=== PATIENT | female | born 1990 | race Caucasian/White ===

== ENCOUNTER 2016-03-16 21:57 | Emergency (ER) | payer BC, OTHER ==
[~2016-03-16] VITALS: Ht 172.7 cm; Wt 117.9 kg
[~2016-03-16 21:57] MED LIST: PRENTAB26 PO
[2016-03-16 22:01] VITALS: Ht 172.7 cm; Wt 117.9 kg
[2016-03-16] MEDS ORDERED: METOCLOPRAMIDE HCL INJ 5 MG/ML 2 ML VIAL IV STA (22:27)
[2016-03-16] MEDS ORDERED: SODIUM CHLORIDE 0.9% 1000ML 2,000 ML IV STA (22:27)
[2016-03-16] MEDS ORDERED: FAMOTIDINE IV INJ 20 MG in DEXTROSE 5% 100ML 100 ML IV STA (22:27)
[2016-03-16] MEDS ORDERED: DiphenhydrAMINE HCL 50 MG/ML VIAL IV STA (22:27)
[2016-03-16 23:08] LABS: BASO % 0.1 %; BASO ABS # 0.01 K/uL (0-0.2); COMPLETE YES; EOS % 0.8 %; HEMATOCRIT 45.2 % (37-47); IG% 0.1 %; LYMPH ABS # 1.73 K/uL (1.2-3.4); MEAN CELL VOLUME 89.9 fL (80-100); MEAN CORPUSCULAR HEMOGLOBIN 31.6 pg (25-34); MEAN CORPUSCULAR HGB CONC 35.2 g/dl (32-36); MEAN PLATELET VOLUME 10.9 fL (7.4-10.4); MONO % 5.8 %; NEUT % 74.2 %; PLATELET COUNT 208 K/uL (130-400); RED BLOOD COUNT 5.03 M/uL (4.2-5.4); WHITE BLOOD COUNT 9.09 K/uL (4.8-10.8)
[2016-03-16 23:29] LABS: PREG INTERNAL NEGATIVE QC NEG CLEAR BACKGROUND; PREG INTERNAL POSITIVE QC POS CONTROL LINE
[2016-03-16 23:54] VITALS: TEMP 37
[2016-03-17] MEDS ORDERED: ONDANSETRON HOME PACK 4MG OD TAB PO ONE
[2016-03-17 00:24] LABS: BUN/CREATININE RATIO 15.4 (10-20); CALCIUM 8.2 mg/dl (8.5-10.1); CREATININE 0.78 mg/dl (0.60-1.20); MAGNESIUM 1.9 mg/dl (1.8-2.4); POTASSIUM 3.6 mmol/L (3.5-5.1)
--- NOTE | 2016-03-17 00:33 | EMERGENCY ROOM VISIT NOTE ---
History First contact with patient: 22:23 Chief Complaint: NAUSEA Stated Complaint: NAUSEA, STOMACH PAIN, DIZZY Nursing Triage Summary: N since Sunday. History of Present Illness The patient is a 25 year old female who presents to the Emergency Room with complaints of nausea, vomiting, diarrhea, lightheadedness and stomach cramping for the past few days. No recent antibiotics. No well water. Other people have been sick. Patient denies chest pain, dyspnea, fever, chills, cough, congestion, urinary symptoms. She is present pain as cramping, ranging in severity 4 out of 10 throughout the abdomen with no localized pain. Nothing makes it better or worse. No blood or black in the vomit or stool. Review of Systems See HPI for pertinent positives & negatives. A total of 10 systems reviewed and were otherwise negative. Past Medical/Surgical History Medical Problems: (1) HTN (hypertension) Family History Hypertension Social History Smoking Status: Current Every Day Smoker Alcohol Use: none Drug Use: none Marital Status: single Housing Status: lives with family Occupation Status: employed Current/Historical Medications No Active Prescriptions or Reported Meds Allergies Coded Allergies: No Known Allergies (Unverified , 03/16/16) Physical Exam Vital Signs Date Time Temp Pulse Resp B/P Pulse Ox O2 Delivery O2 Flow Rate FiO2 03/16/16 22:01 37.0 82 20 141/95 96 Room Air Physical Exam VITALS: Vitals are noted on the nurse's note and reviewed by myself. Vital signs stable. GENERAL: Pleasant female, in no acute distress, nondiaphoretic, well-developed well-nourished. SKIN: The skin was without rashes, erythema, edema, or bruising. There is no tenting of the skin. Capillary reflex less than 2 seconds. HEAD: Normocephalic atraumatic. EARS: External auditory canals clear, tympanic membranes pearly ho without erythema or effusion bilaterally. EYES: Pupils equal round and reactive to light and accommodation. Conjunctivae without injection, sclerae without icterus. Extraocular movements intact. NOSE: Patent, turbinates without inflammation or discharge. No sinus tenderness. MOUTH: Mucous membranes mildly dry. Pharynx without erythema or exudate. Uvula midline. Airway patent. Tongue does not deviate. NECK: Supple without nuchal rigidity. No lymphadenopathy. No thyromegaly. Cervical spine is nontender. No JVD. HEART: Regular rate and rhythm without murmurs gallops or rubs. LUNGS: Clear to auscultation bilaterally without wheezes, rales or rhonchi. No dullness to percussion. No retractions or accessory muscle use. ABDOMEN: Positive bowel sounds x 4. Normal tympanic percussion. Soft, protuberant, obese, no CVA tenderness nontender, without masses or organomegaly. Reddy sign negative. No guarding or rebound tenderness. MUSCULOSKELETAL: No muscle atrophy, erythema, or edema noted. NEURO: Patient was alert and oriented to person place and time. Normal sensation to light and sharp touch. No focal neurological deficits. Medical Decision & Procedures Laboratory Results 03/16/16 22:50 Red Blood Count 5.03, Mean Corpuscular Volume 89.9, Mean Corpuscular Hemoglobin 31.6, Mean Corpuscular Hemoglobin Concent 35.2, Mean Platelet Volume 10.9, Neutrophils (%) (Auto) 74.2, Lymphocytes (%) (Auto) 19.0, Monocytes (%) (Auto) 5.8, Eosinophils (%) (Auto) 0.8, Basophils (%) (Auto) 0.1, Neutrophils # (Auto) 6.74, Lymphocytes # (Auto) 1.73, Monocytes # (Auto) 0.53, Eosinophils # (Auto) 0.07, Basophils # (Auto) 0.01 03/16/16 23:54 Test 03/16/16 22:50 03/16/16 23:54 White Blood Count 9.09 K/uL (4.8-10.8) Red Blood Count 5.03 M/uL (4.2-5.4) Hemoglobin 15.9 g/dL (12.0-16.0) Hematocrit 45.2 % (37-47) Mean Corpuscular Volume 89.9 fL (80-100) Mean Corpuscular Hemoglobin 31.6 pg (25-34) Mean Corpuscular Hemoglobin Concent 35.2 g/dl (32-36) Platelet Count 208 K/uL (130-400) Mean Platelet Volume 10.9 fL (7.4-10.4) Neutrophils (%) (Auto) 74.2 % Lymphocytes (%) (Auto) 19.0 % Monocytes (%) (Auto) 5.8 % Eosinophils (%) (Auto) 0.8 % Basophils (%) (Auto) 0.1 % Neutrophils # (Auto) 6.74 K/uL (1.4-6.5) Lymphocytes # (Auto) 1.73 K/uL (1.2-3.4) Monocytes # (Auto) 0.53 K/uL (0.11-0.59) Eosinophils # (Auto) 0.07 K/uL (0-0.5) Basophils # (Auto) 0.01 K/uL (0-0.2) RDW Standard Deviation 42.8 fL (36.4-46.3) RDW Coefficient of Variation 13.1 % (11.5-14.5) Immature Granulocyte % (Auto) 0.1 % Immature Granulocyte # (Auto) 0.01 K/uL (0.00-0.02) Human Chorionic Gonadotropin, Qual NEG (NEG) Anion Gap 10.0 mmol/L (3-11) Est Creatinine Clear Calc Drug Dose 150.1 ml/min Estimated GFR () 123.3 Estimated GFR (Non- 106.4 BUN/Creatinine Ratio 15.4 (10-20) Calcium Level 8.2 mg/dl (8.5-10.1) Magnesium Level 1.9 mg/dl (1.8-2.4) Medications Administered Medications (Trade) Dose Ordered Sig/Luh Route Start Time Stop Time Status Last Admin Dose Admin Sodium Chloride (Nss 1000ml) 2,000 ml @ 999 mls/hr Q2H1M STAT IV 03/16/16 22:27 03/17/16 00:27 DC 03/16/16 22:58 999 MLS/HR Metoclopramide HCl (Reglan Inj) 10 mg NOW STAT IV 03/16/16 22:27 03/16/16 22:29 DC 03/16/16 22:58 10 MG Diphenhydramine HCl 12.5 mg 12.5 mg NOW STAT IV 03/16/16 22:27 03/16/16 22:29 DC 03/16/16 22:58 12.5 MG Famotidine/ Dextrose (Pepcid IV Inj/ D5 100ml) 102 ml @ 200 mls/hr NOW STAT IV 03/16/16 22:27 03/16/16 22:57 DC 03/16/16 23:02 200 MLS/HR ED Course Prior records/ancillary studies reviewed. Triage Nursing notes reviewed. Additional history obtained from the family. The patient's history was concerning for nausea, vomiting, diarrhea, and abdominal pain. Differential diagnosis: Etiologies such as gastroenteritis, food borne illness, infections, appendicitis , diverticulitis, inflammatory bowel disease, obstruction, GI bleed, biliary pathology, as well as others were entertained. Physical examination findings: As above. Abdominal examination revealed no tenderness. Vital signs reviewed and revealed stable. ER treatment provided: IV hydration 2 L NSS. Zofran, Pepcid On reassessment the patient felt better. Patient was tolerating p.o. intake. Diagnostics interpretation by me: The labs revealed no worrisome leukocytosis. Negative hCG This appears to be consistent with vomiting and diarrhea. Patient felt much better after being medicated as above. She is able tolerate by mouth fluids and ambulate without difficulties. She did not have acute abdomen on exam. She is advised to rest, stay well-hydrated, do clear liquid diet today and then progress as tolerated to bland diet tomorrow. She is advised follow-up family care in a few days or here in the ER sooner for abdominal pain, fevers, vomiting , worsening signs or symptoms or as needed.. By the evaluation outlined above emergent etiologies such as appendicitis, diverticulitis, obstruction, cardiac sources, mesenteric ischemia, aortic pathology, inflammatory bowel disease, renal colic, PUD, biliary pathology, UTI, as well as others were deemed relatively unlikely. The pt informed about the findings as listed above. All questions were answered and pleased with the treatment. Return instructions were outlined and the patient was discharged in stable condition. Outpatient prescription management: zofran Referral: The patient was referred to their primary care physician for follow-up in 2 to 3 days for a recheck of the current condition. Medical Decision As above Impression Primary Impression: Nausea vomiting and diarrhea Departure Information Dispostion Home / Self-Care Condition GOOD Prescriptions No Active Prescriptions or Reported Meds Referrals No Doctor, Assigned (PCP) Patient Instructions [facility] Additional Instructions DO NOT drive, drink alcohol, operate machinery, or perform dangerous activities today. You were given medications in the ER that can affect your ability to safely function or operate a vehicle. Zofran(odansetron) tablets 4mg: Take one and allow it to dissolve in your mouth every four to six hours as needed for nausea or vomiting. Acetaminophen(Tylenol) may be used for fever or pain. Use 1000mg every six hours as needed. Avoid using more than 3000mg in a 24 hour period. Rest and drink plenty of fluids as tolerated. Slow sips of water or sports drinks are recommended instead of large amounts all at once. Continue current medications. Once your stomach is settled start with a clear liquid diet (jello, soup broth, etc.) and then advance as tolerated. You should avoid full, heavy meals for about 24 hrs from the time your symptoms resolved. Return to the ER for persistent vomiting, fevers, abdominal pain, chest pains, difficulty breathing, black or bloody stools, worsening of your condition, or as needed. Follow up with your primary physician in 2-3 days for a recheck of your current condition.
[2016-03-17 00:47] VITALS: BP 126/84; PULSE 75; O2SAT 99
== END 2016-03-17 00:51 | disposition home or self-care (01) ==
LOC: C.EDB 21:58 → C.EDC 03-17 00:51
DX: R11.2 Nausea with vomiting, unspecified (principal); R19.7 Diarrhea, unspecified; I10 Essential (primary) hypertension; F17.200 Nicotine dependence, unspecified, uncomplicated

== ENCOUNTER 2016-06-26 14:35 | Emergency (ER) | payer BC, OTHER ==
[~2016-06-26] VITALS: Ht 170.2 cm; Wt 116.8 kg
[2016-06-26 14:40] VITALS: TEMP 36.7; Ht 170.2 cm; Wt 116.8 kg
--- NOTE | 2016-06-26 15:14 | EMERGENCY ROOM VISIT NOTE ---
ED Visit Note First contact with patient: 14:51 CHIEF COMPLAINT: Painful open wound left groin 3 days History of present illness: Patient is a 25-year-old white female who presents to emergency department for evaluation of a painful lump in her left groin. She states she noticed a small bump there about 3 days ago. Today when she went to the bathroom she noted that it was open and draining. She has a history of pilonidal cyst abscess is which has required I&D. She denies a history of MRSA. She does report a history of a spider bite on the anterior left thigh and feels like this is similar. She has not had a fever. REVIEW OF SYSTEMS: Review of systems as per HPI. All other systems reviewed were negative. At least 6 systems reviewed. PMH: Electronic medical records are reviewed and summarized as above/below. See Problem List. SOCIAL HISTORY: Patient lives at home with her family. PHYSICAL EXAM: Vital Signs: Reviewed Nurse's notes. MENTAL STATUS: Alert, oriented, and not in distress. SKIN: Examination of the patient's left inguinal area show a small, open ulceration in the center of a small area of induration and increased warmth. It appears to correspond to an area where there is a hair follicle. The area is tender to palpation, but there is no pointing. No fluctuance or drainage is appreciated. There is no lymphangitic streaking. No palpable lymphadenopathy. EMERGENCY DEPARTMENT COURSE: The patient was seen and assessed as above. She has a small area of induration in her left groin which appears consistent with a small pustule that may have involved a hair follicle. It is near where she shaves. It is a 30 open and has drained. There is not appear to be any deeper collection of pus which requires further I&D. She is encouraged to keep the area covered with a bandage, apply warm compresses, and take the antibiotics as prescribed. She was encouraged to return to the emergency department for worsening symptoms. I do not suspect foreign body. She does not have findings consistent with an overt cellulitis. Problem List Medical Problems: (1) Cellulitis, gluteal, right Status: Resolved (2) Cellulitis, gluteal, right Status: Resolved (3) HTN (hypertension) Status: Chronic (4) Nausea vomiting and diarrhea Status: Resolved (5) Pilonidal cyst with abscess Status: Resolved (6) Pilonidal cyst with abscess Status: Resolved (7) Pilonidal cyst with abscess Status: Resolved (8) Pilonidal cyst with abscess Status: Resolved (9) Pilonidal cyst with abscess Status: Resolved (10) Pilonidal cyst with abscess Status: Resolved (11) Threatened miscarriage Status: Resolved (12) Threatened miscarriage Status: Resolved (13) UTI (lower urinary tract infection) Status: Resolved Current/Historical Medications Scheduled Cephalexin Monohydrate (Keflex), 500 MG PO TID Multivitamin (Multivitamin), 1 TAB PO DAILY Sulfamethoxazole-Trimethoprim (Bactrim Ds 800MG/160MG), 1 TAB PO BID Allergies Coded Allergies: No Known Allergies (Unverified , 06/26/16) Vital Signs Date Time Temp Pulse Resp B/P Pulse Ox O2 Delivery O2 Flow Rate FiO2 06/26/16 15:26 78 20 138/79 98 06/26/16 14:40 36.7 111 18 176/95 98 Room Air Departure Information Impression Primary Impression: Skin pustule Prescriptions Sulfamethoxazole-Trimethoprim (Bactrim Ds 800MG/160MG) 1 Tab Tab 1 TAB PO BID for 7 Days, #14 TAB Prov: Soledad Bray PA 06/26/16 Cephalexin Monohydrate (KEFLEX) 500 Mg Cap 500 MG PO TID, #21 CAP Prov: Soledad Bray PA 06/26/16 Referrals Jennie Villasenor M.D. (PCP) Patient Instructions [facility] Additional Instructions Cephalexin(Keflex) 500mg: Take one pill 3 times daily for 7 days for your skin infection. All antibiotics can cause diarrhea. If this occurs and you feel worse or it does not resolve in 1-2 days follow up with your doctor or return to the Emergency Department as this could be signs of serious underlying problems. Any medication can cause an allergic reaction, stop the pills immediately and return to the ER for rash, hives, breathing difficulties, or swelling. Trimethoprim-Sulfamethoxazole(Bactrim DS): Take one pill twice daily for 7 days for your skin infection. All antibiotics can cause diarrhea. If this occurs and you feel worse or it does not resolve in 1-2 days follow up with your doctor or return to the Emergency Department as this could be signs of serious underlying problems. Any medication can cause an allergic reaction, stop the pills immediately and return to the ER for rash, hives, breathing difficulties, or swelling. Ibuprofen(Motrin, Advil) may be used for fever or pain. Use 600mg every six hours as needed. Take with food. Avoid using more than 2400mg in a 24 hour period. Do not use 2400mg per day for more than three consecutive days without physician direction. Prolonged inappropriate use can lead to stomach upset or ulcers. This is available over the counter and typically comes in 200mg tablets. (AND/OR) Acetaminophen(Tylenol) may be used for fever or pain. Use 1000mg every eight hours as needed. Avoid using more than 3000mg in a 24 hour period. This is available over the counter. Read all the package inserts or medication information paperwork provided. If you have any questions or concerns call your primary provider, pharmacist or the ER for assistance. Warm compresses to the affected area 4 times daily for 15-20 minutes. Rest and drink plenty of fluids. Continue current medications. Return to the ER for severe pain, persistent fevers, spreading redness, or any worsening of your condition. Follow up with your primary physician within 2-3 days for a recheck of the current condition.
[2016-06-26] MEDS ORDERED: MULT-506 PO (15:20)
[2016-06-26] MEDS ORDERED: SULF800T23 PO (15:23)
[2016-06-26] MEDS ORDERED: CEPH500C2 PO (15:23)
[2016-06-26 15:26] VITALS: BP 138/79; PULSE 78; O2SAT 98
== END 2016-06-26 15:28 | disposition home or self-care (01) ==
LOC: C.EDB 14:36 → C.EDD 15:28
DX: L08.9 Local infection of the skin and subcutaneous tissue, unspecified (principal); I10 Essential (primary) hypertension

== ENCOUNTER 2017-03-12 08:15 | Emergency (ER) | payer OTHER ==
[~2017-03-12] VITALS: Ht 172.7 cm; Wt 119.0 kg
[~2017-03-12 08:15] MED LIST changes: +MULT-506 PO; -PRENTAB26 PO
[2017-03-12 08:19] VITALS: TEMP 36.5; Ht 172.7 cm; Wt 119.0 kg
[2017-03-12] MEDS ORDERED: ALBUT/IPRATROP 3MG/0.5MG NEB 3 ML VIAL INH STA (08:55)
[2017-03-12 09:43] LABS: INFLUENZA B ANTIGEN Neg for Influ B (NEG)
--- NOTE | 2017-03-12 10:00 | DIAGNOSTIC IMAGING REPORT ---
CHEST 2 VIEWS ROUTINE CLINICAL HISTORY: cough dyspnea COMPARISON STUDY: No previous studies for comparison. FINDINGS: The bones soft tissues and hemidiaphragms are normal. The cardiomediastinal silhouette is normal. The lungs are clear. The pulmonary vasculature is normal. IMPRESSION: Negative chest. The above report was generated using voice recognition software. It may contain grammatical, syntax or spelling errors. Electronically signed by: Trenton Uribe M.D. 03/12/2017 9:59 AM Dictated Date/Time: 03/12/2017 9:58 AM
[2017-03-12] MEDS ORDERED: KETOROLAC TROMETHAMINE 60 MG/2 ML VIAL IM STA (10:18)
[2017-03-12] MEDS ORDERED: BENZ1CAP90 PO (10:30)
[2017-03-12] MEDS ORDERED: VNTHFA/IN INH (10:30)
--- NOTE | 2017-03-12 10:31 | EMERGENCY ROOM VISIT NOTE ---
History First contact with patient: 08:47 Chief Complaint: COUGH Stated Complaint: COUGH, 1 WEEK CHEST PAIN Nursing Triage Summary: patient c/o cough chest congestion. and nasal congestion x 1 week. denies fever History of Present Illness The patient is a 26 year old female who presents to the Emergency Room with complaints of "I can't breathe". The patient states for one week, she's been expecting a cough. She states the coughing has gotten worse in the past 2 days. She now describes a pain in her lungs, bilaterally, but the left greater than right. The patient denies any history of respiratory illness including bronchitis, pneumonia, asthma, COPD, emphysema, and she is not a smoker. The patient denies any fever. She is not coughing up sputum or blood. The patient states associated with her cough, she is also experiencing a headache, congestion, runny nose, sore throat, sinus pressure, chills, and headache. She has been taking a decongestant and cough medication every 4 hours for the past 4 days. She has been taking Tylenol for pain. The patient did not get her flu shot. She has not seen a provider regarding her symptoms. She states she is not feeling wheezy and short of breath. She states the pain in her chest wall and lungs is severe, describes it as sharp. She rates the pain 5/10. She denies any abdominal pain, nausea, vomiting, syncope, numbness or tingling, chest pressure, or other associated symptoms. There has been no leg swelling or recent travel. Review of Systems A complete 10 point review of systems was reviewed with the patient with pertinent positives and negatives as per history of present illness. All else were negative. Past Medical/Surgical History Medical Problems: (1) Cellulitis, gluteal, right (2) Cellulitis, gluteal, right (3) HTN (hypertension) (4) Nausea vomiting and diarrhea (5) Pilonidal cyst with abscess (6) Pilonidal cyst with abscess (7) Pilonidal cyst with abscess (8) Pilonidal cyst with abscess (9) Pilonidal cyst with abscess (10) Pilonidal cyst with abscess (11) Threatened miscarriage (12) Threatened miscarriage (13) UTI (lower urinary tract infection) Family History Hypertension Social History Smoking Status: Former Smoker Alcohol Use: none Drug Use: none Marital Status: single Housing Status: lives with family Occupation Status: employed Current/Historical Medications Scheduled Albuterol Hfa (Ventolin Hfa), 2 PUFFS INH Q4-6H Scheduled PRN Benzonatate (Tessalon Perles), 200 MG PO TID PRN for Cough Physical Exam Vital Signs Date Time Temp Pulse Resp B/P (MAP) Pulse Ox O2 Delivery O2 Flow Rate FiO2 03/12/17 10:55 69 20 130/90 99 Room Air 03/12/17 09:30 60 22 139/87 100 Room Air 03/12/17 08:22 98 Room Air 03/12/17 08:19 36.5 86 20 154/90 98 Room Air Physical Exam VITALS: Vitals are noted on the nurse's note and reviewed by myself. Vital signs stable. GENERAL: This is a 26-year-old obese white female, in no acute distress, nondiaphoretic, well-developed well-nourished. SKIN: The skin was without rashes, erythema, edema, or bruising. There is no tenting of the skin. Capillary reflex less than 2 seconds. HEAD: Normocephalic atraumatic. EARS: External auditory canals clear, tympanic membranes pearly ho without erythema or effusion bilaterally. EYES: Pupils equal round and reactive to light and accommodation. Conjunctivae without injection, sclerae without icterus. Extraocular movements intact. NOSE: Patent, turbinates without inflammation or discharge. No sinus tenderness. MOUTH: Mucous membranes moist. Tonsils are not enlarged. Pharynx without erythema or exudate. Uvula midline. Airway patent. Tongue does not deviate. NECK: Supple without nuchal rigidity. No lymphadenopathy. No thyromegaly. Cervical spine is nontender. No JVD. HEART: Regular rate and rhythm without murmurs gallops or rubs. LUNGS: Wheezing noted throughout, worse on the left lower lung chaap. No rales or rhonchi. No dullness to percussion. No retractions or accessory muscle use. The wheezing did improve significantly after the DuoNeb treatment. ABDOMEN: Positive bowel sounds x 4. Normal tympanic percussion. Soft, nontender, without masses or organomegaly. Reddy sign negative. No guarding or rebound tenderness. MUSCULOSKELETAL: No muscle atrophy, erythema, or edema noted. Full range of motion without joint tenderness in all extremities. No tenderness to palpation. Normal gait. Strength 5/5 throughout. NEURO: Patient was alert and oriented to person place and time. Normal sensation to light and sharp touch. Deep tendon reflexes 2+ throughout. No focal neurological deficits. Medical Decision & Procedures ER Provider Diagnostic Interpretation: CHEST 2 VIEWS ROUTINE CLINICAL HISTORY: cough dyspnea COMPARISON STUDY: No previous studies for comparison. FINDINGS: The bones soft tissues and hemidiaphragms are normal. The cardiomediastinal silhouette is normal. The lungs are clear. The pulmonary vasculature is normal. IMPRESSION: Negative chest. The above report was generated using voice recognition software. It may contain grammatical, syntax or spelling errors. Electronically signed by: Trenton Uribe M.D. 03/12/2017 9:59 AM Dictated Date/Time: 03/12/2017 9:58 AM Laboratory Results Test 03/12/17 09:05 Influenza Type A Antigen Neg for Influ A (NEG) Influenza Type B Antigen Neg for Influ B (NEG) Medications Administered Medications (Trade) Dose Ordered Sig/Luh Route Start Time Stop Time Status Last Admin Dose Admin Albuterol/ Ipratropium (Duoneb) 3 ml NOW STAT INH 03/12/17 08:55 03/12/17 08:57 DC 03/12/17 09:05 3 ML Ketorolac Tromethamine (Toradol Inj) 60 mg NOW STAT IM 03/12/17 10:18 03/12/17 10:19 DC 03/12/17 10:56 60 MG ED Course The patient was seen and evaluated as above. She was hunched over, unwilling to look at me directly while I was speaking with her. The patient states she was having difficulty breathing. DuoNeb treatment was initiated. The patient does seem to be breathing better after the DuoNeb treatment. She states she continues to feel short of breath continues to experience pain when coughing, however the dyspnea and wheezing have improved. I reassessed the patient at this time, her lung sounds have improved. The patient was given 60 mg Toradol IM. She noted very mild improvement in her symptoms. I discussed proper treatment the patient for bronchitis at bedside. I encouraged her to use the inhaler, cough medication, and anti-inflammatories as directed. The patient is encouraged to follow up outpatient with her PCP later this week. Discharge instructions reviewed, the patient was discharged home in good condition. Medical Decision This is a 26-year-old female who complains of dyspnea, chest discomfort with coughing, cough, and upper respiratory infection symptoms. Her symptoms sound similar to influenza, although her influenza test was negative. I do suspect a viral etiology of illness, given the duration of symptoms and all of the symptoms the patient is experiencing. Her breathing difficulty and cough did improve with DuoNeb treatment. At this time, I feel that symptomatic treatment is most appropriate. The patient will be started on albuterol, benzonatate, and scheduled anti-inflammatories with intermittent Tylenol as needed. The patient was encouraged to get her flu vaccination when she is feeling better. She is encouraged to follow up later this week with her PCP. She was also given return instructions if symptoms worsen or do not improve. Differential diagnosis includes influenza, bronchitis, pneumonia, upper respiratory infection, sinusitis, otitis media, pharyngitis, DVT, PE, malignancy , and others Medication Reconcilliation Current Medication List: was personally reviewed by me Blood Pressure Screening Patient's blood pressure: Elevated blood pressure Blood pressure disposition: Elevated BP felt to be situational Impression Primary Impression: Acute bronchitis Departure Information Dispostion Home / Self-Care Condition GOOD Prescriptions Albuterol Hfa (VENTOLIN HFA) 200 Puffs/17011 Mcg Aers 2 PUFFS INH Q4-6H, #1 INHALER Prov: Elaina Gonzalez PA-C 03/12/17 Benzonatate (Tessalon Perles) 200 Mg Cap 200 MG PO TID Y for Cough for 10 Days, #30 CAP Prov: Elaina Gonzalez PA-C 03/12/17 Referrals Jennie Villasenor M.D. (PCP) Patient Instructions Chest Cold (Bronchitis) - [facility], My [facility] Additional Instructions You were seen and evaluated in the emergency department today for acute bronchitis with influenza-like symptoms. I do feel that based on your symptoms, and the duration of illness, this is likely viral in nature. As discussed, antibiotics will not treat viral illness. You have been provided with an albuterol inhaler to use for wheezing or difficulty breathing. Use this inhaler 1-2 puffs every 4-6 hours as needed. If you find that your symptoms are not improving with the use of the inhaler, or if you find that you need to use the inhaler longer than 1 week, return to the ED or follow-up with your PCP. You have been given benzonatate (Tessalon Pearles) to be used for coughing. These should be taken 1 capsule up to 3 times per day as needed for coughing. Do not take this medication more than prescribed. You may use this medication in addition to OTC cough medications. For your sore throat, you may use a 1:1 mixture of liquid Benadryl and liquid Maalox. Gargle and spit this mixture. It will help to soothe the throat and provide some relief. Drink warm tea with honey and lemon, as this will also help to soothe the throat. Gargle with salt water frequently. As discussed, you should take OTC Mucinex and/or Sudafed for your symptoms. Please do not exceed the recommended daily dosages. Ibuprofen(Motrin, Advil) may be used for fever or pain. Use 600mg every six hours as needed. Take with food. Avoid using more than 2400mg in a 24 hour period. Do not use 2400mg per day for more than three consecutive days without physician direction. Prolonged inappropriate use can lead to stomach upset or ulcers. You may take Naproxen 1-[address] tablets twice daily in place of ibuprofen. This medication will help with the swelling in your sinuses. (AND/OR) Acetaminophen(Tylenol) may be used for fever or pain. Use 1000mg every six hours as needed. Avoid using more than 3000mg in a 24 hour period. *Take these medications consistently for the next 2-3 days and do not wait until you experience pain. You may alternate them every 3-4 hours as needed. For congestion, you may use Flonase OTC. You may want to consider zinc, echinacea, and vitamin C to help boost your immunity. Please get plenty of rest and drink plenty of fluids. Please return or follow-up with your PCP in 2-3 days for re-check of your symptoms. Return to the emergency department for coughing up blood, difficulty breathing, chest pain, worsening symptoms, or for other concerns. Work Instructions Return To Work: 3 days Problem Qualifiers Primary Impression: Acute bronchitis Bronchitis organism: unspecified organism Qualified Codes: J20.9 - Acute bronchitis, unspecified
[2017-03-12 10:55] VITALS: BP 130/90; PULSE 69; O2SAT 99
== END 2017-03-12 11:01 | disposition home or self-care (01) ==
LOC: C.EDB 08:16 → C.EDA 11:01
DX: J20.9 Acute bronchitis, unspecified (principal); I10 Essential (primary) hypertension; Z87.891 Personal history of nicotine dependence; Z82.49 Family history of ischemic heart disease and other diseases of the circulatory system